=== PATIENT | female | born 1940 | race Caucasian/White ===

== ENCOUNTER 2025-07-21 08:22 | Inpatient (IN) | payer MEDICARE, OTHER ==
[~2025-07-21] VITALS: Ht 160 cm; Wt 54.4 kg
[2025-07-21 08:41] LABS: PLATELET COUNT (AUTO) 170 K/uL (179-408); RED BLOOD CELL COUNT(AUTO) 3.91 MIL/uL (3.63-4.92); RED CELL DISTRIBUTION WIDTH 13.7 % (12.3-17.7); WHITE BLOOD COUNT (AUTO) 4.6 K/uL (3.8-11.8)
[2025-07-21 08:49] LABS: CREATININE 1.2 mg/dL (0.6-1.3); SODIUM SERUM 142 mmol/L (136-145); UREA NITROGEN, BLOOD 18 mg/dL (7-18)
[2025-07-21] MEDS ORDERED: FOLI1TAB27 PO (08:51)
[2025-07-21] MEDS ORDERED: ATOR40TA PO (08:51)
[2025-07-21] MEDS ORDERED: APIX2.5T PO (08:51)
[2025-07-21] MEDS ORDERED: AMLO2.5T2 PO (08:51)
[2025-07-21] MEDS: IV NORMAL SALINE 1000 ML BAG IV ONE (09:11)
[2025-07-21] MEDS ORDERED: METOPROLOL TARTRATE 5 MG/5 ML VIAL IVP ONE (09:12)
[2025-07-21] MEDS: METOPROLOL TARTRATE 5 MG/5 ML VIAL IVP ONE (09:23)
[2025-07-21 09:59] LABS: *BILIRUBIN,URIN NEGATIVE (NEGATIVE); *CLARITY,URINE CLEAR (CLEAR); *COLOR,URINE YELLOW (YELLOW); *KETONES,URINE NEGATIVE (NEGATIVE); *PROTEIN,URINE NEGATIVE (NEGATIVE); *UROBILINOGEN,URINE 0.2 E.U./dl (NORMAL); LEUKOCYTE ESTERASE ,URINE NEGATIVE (NEGATIVE); NITRITE, URINE NEGATIVE (NEGATIVE); UGLUCOSE NEGATIVE (NEGATIVE)
[2025-07-21] MEDS ORDERED: ONDANSETRON 4 MG/2 ML VIAL IV PRN (10:00)
[2025-07-21] MEDS ORDERED: APIXABAN 2.5 MG TABLET PO SCH ×2 (10:00→17:00)
[2025-07-21] MEDS ORDERED: ACETAMINOPHEN 325 MG TABLET PO PRN (10:00)
[2025-07-21] MEDS ORDERED: MORPHINE SULFATE 2 MG/1 ML DISP.SYRIN IVP PRN (10:00)
[2025-07-21] MEDS ORDERED: POTA10TA48 PO (10:11)
[2025-07-21] MEDS ORDERED: MAGN400T40 PO (10:11)
[2025-07-21] MEDS ORDERED: OLME20TA13 PO (10:11)
[2025-07-21 10:28] LABS: *BLOOD, URINE TRACE (NEGATIVE)
[2025-07-21 10:29] LABS: SQUAMOUS EPITHELIAL CELL,UR FEW /HPF (NONE SEEN)
[2025-07-21 11:00] VITALS: BP 109/71
[2025-07-21] MEDS: IV NS 1000 ML 1,000 ML IV SCH (12:34)
[2025-07-21] MEDS: METOPROLOL TARTRATE 50 MG TABLET PO SCH (12:45)
[2025-07-21 12:47] VITALS: BP 130/81; TEMP 97.8; O2SAT 100
[2025-07-21] MEDS ORDERED: METOPROLOL TARTRATE 50 MG TABLET PO SCH ×2 (13:00)
[2025-07-21] MEDS ORDERED: METO-356 PO (13:51)
[2025-07-21] MEDS ORDERED: POTA-202 PO (13:52)
[2025-07-21 16:00] VITALS: BP 116/71; TEMP 98.3; O2SAT 99
[2025-07-21] MEDS: DOCUSATE SODIUM 100 MG CAPSULE PO SCH (16:37)
[2025-07-21] MEDS: APIXABAN 2.5 MG TABLET PO SCH (16:40)
[2025-07-21] MEDS ORDERED: Medication Not On Formulary EA (Olmesartan Medoxomil (Benicar) 20 MG) PO SCH (17:00)
[2025-07-21 19:00] VITALS: BP 106/73; TEMP 98.3; O2SAT 95
[2025-07-21] MEDS: ATORVASTATIN 40 MG TABLET PO SCH (20:25)
[2025-07-21] MEDS ORDERED: ATORVASTATIN 40 MG TABLET PO SCH (21:00)
[2025-07-22 04:00] VITALS: BP 150/84; TEMP 97.8; O2SAT 97
[2025-07-22 08:12] VITALS: BP 151/90; TEMP 98.5; O2SAT 98
[2025-07-22] MEDS: FOLIC ACID 1 MG TABLET PO SCH (08:41)
[2025-07-22 08:44] VITALS: BP 151/90
[2025-07-22] MEDS: LOSARTAN POTASSIUM 50 MG TABLET PO SCH (08:44)
[2025-07-22] MEDS: MIRALAX 17 GM POWD.PACK PO SCH (08:45)
[2025-07-22] MEDS ORDERED: FOLIC ACID 1 MG TABLET PO SCH (09:00)
[2025-07-22] MEDS ORDERED: AMLODIPINE 2.5 MG TABLET PO SCH ×2 (09:00)
[2025-07-23] MEDS ORDERED: LOSARTAN POTASSIUM 50 MG TABLET PO SCH (09:00)
== END 2025-07-22 11:30 | disposition home or self-care (01) | DRG 641 ==
LOC: EDBD 08:22 → ER 08:22 → TELE3 12:02
PROVIDERS: ADMIT Internal Medicine; ATTEND Internal Medicine
DX: E86.0 Dehydration (principal); D69.6 Thrombocytopenia, unspecified; Z79.01 Long term (current) use of anticoagulants; F03.A0 Unspecified dementia, mild, without behavioral disturbance, psychotic disturbance, mood disturbance, and anxiety; I10 Essential (primary) hypertension; I48.0 Paroxysmal atrial fibrillation; E78.5 Hyperlipidemia, unspecified
CPT/HCPCS: 36415; 71045; 83735; 84100; 84443; 84484; 85025; 93307; A4663; G0378; J3490; J7040